=== PATIENT | male | born 2000 | race Caucasian/White ===

== ENCOUNTER 2021-12-20 18:36 | Emergency (ER) | payer BC ==
[~2021-12-20] VITALS: Ht 177.8 cm; Wt 80.7 kg
[2021-12-20] MEDS ORDERED: IBUP200C25 PO (18:48)
[2021-12-21 03:34] VITALS: BP 118/62
[2021-12-21] MEDS ORDERED: methocarbamoL 750 MG TAB PO ONE (05:00)
[2021-12-21] MEDS ORDERED: NAPR-837 PO (05:00)
[2021-12-21] MEDS ORDERED: NAPROXEN 250 MG TAB PO ONE (05:00)
[2021-12-21] MEDS ORDERED: METH-1165 PO (05:00)
== END 2021-12-21 05:14 | disposition home or self-care (01) ==
LOC: M ED 18:36
DX: M51.26 Other intervertebral disc displacement, lumbar region (principal); M51.27 Other intervertebral disc displacement, lumbosacral region